=== PATIENT | female | born 1970 | race Caucasian/White ===

== ENCOUNTER 2016-10-05 16:53 | Emergency (ER) | payer SELFPAY ==
--- NOTE | 2016-10-05 17:50 | NUR ---
PATIENT LEFT WITHOUT BEING SEEN BY DR. GOODSON. NO FURTHER CARE PROVIDED FOR PATIENT.
== END 2016-10-05 17:50 | disposition home or self-care (01) ==
LOC: MED 16:53
DX: R14.0 Abdominal distension (gaseous) (principal); Z53.21 Procedure and treatment not carried out due to patient leaving prior to being seen by health care provider

== ENCOUNTER 2020-07-01 08:30 | Outpatient (CLI) | payer OTHER, SELFPAY | END 2020-07-01 23:59 | disposition home or self-care (01) | LOC: MLB 08:30 → EDSTATUS 07-09 07:30 | PROVIDERS: ATTEND Internal Medicine Gastroenterology | DX: Z01.812 Encounter for preprocedural laboratory examination (principal); Z20.828 Contact with and (suspected) exposure to other viral communicable diseases; Z53.8 Procedure and treatment not carried out for other reasons | CPT/HCPCS: U0003 ==

== ENCOUNTER 2020-08-13 06:27 | Day surgery (SDC) | payer OTHER, SELFPAY ==
[~2020-08-13] VITALS: Ht 170.2 cm; Wt 68.9 kg
[2020-08-13] MEDS ORDERED: fentaNYL citrate 0.05 MG/ML VIAL ONE (07:32)
[2020-08-13] MEDS ORDERED: LIDOCAINE 2% 100 MG/5 ML UJET TP ONE ×2 (07:33→08:35)
[2020-08-13] MEDS ORDERED: MIDAZOLAM 2 MG/2 ML VIAL ONE ×2 (07:33)
[2020-08-13] MEDS ORDERED: fentaNYL citrate 0.05 MG/ML VIAL IVP ONE (08:24)
[2020-08-13] MEDS ORDERED: MIDAZOLAM 2 MG/2 ML VIAL IVP ONE (13:50)
== END 2020-08-13 09:40 | disposition home or self-care (01) ==
LOC: MMU 06:27 → MOR 06:27
PROVIDERS: ATTEND Internal Medicine Gastroenterology
DX: Z12.11 Encounter for screening for malignant neoplasm of colon (principal); K63.5 Polyp of colon; K21.00 Gastro-esophageal reflux disease with esophagitis, without bleeding; K57.30 Diverticulosis of large intestine without perforation or abscess without bleeding; K74.60 Unspecified cirrhosis of liver; I85.10 Secondary esophageal varices without bleeding; K29.70 Gastritis, unspecified, without bleeding; Z86.010 Personal history of colon polyps; Z20.828 Contact with and (suspected) exposure to other viral communicable diseases; Z79.899 Other long term (current) drug therapy; F17.210 Nicotine dependence, cigarettes, uncomplicated; Z88.0 Allergy status to penicillin
CPT/HCPCS: 43239; 45385; J2250; J3010; U0003